=== PATIENT | male | born 1990 | race Caucasian/White ===

== ENCOUNTER 2025-09-08 02:49 | Emergency (ER) | payer OTHER ==
[~2025-09-08] VITALS: Ht 180.3 cm; Wt 72.6 kg
[2025-09-08 02:49] VITALS: BP 123/70
[2025-09-08] MEDS ORDERED: HYDROCODONE/APAP 5-325MG TABLET PO ONE (03:15)
[2025-09-08] MEDS ORDERED: HYDROCODONE/APAP 5-325MG TABLET ONE (03:20)
[2025-09-08] MEDS: SULFAMETH/TRIMETH 800/160 MG TABLET PO ONE (03:25)
[2025-09-08] MEDS: IBUPROFEN 600 MG TABLET PO ONE (03:25)
[2025-09-08] MEDS ORDERED: CEPH500C2 PO (03:27)
[2025-09-08] MEDS ORDERED: SULF1TAB48 PO (03:27)
[2025-09-08 03:33] VITALS: BP 126/68; O2SAT 99
== END 2025-09-08 03:59 | disposition home or self-care (01) ==
LOC: ER 02:56
DX: L02.412 Cutaneous abscess of left axilla (principal); L03.112 Cellulitis of left axilla; F17.210 Nicotine dependence, cigarettes, uncomplicated; Z79.899 Other long term (current) drug therapy; Z90.49 Acquired absence of other specified parts of digestive tract; Z60.2 Problems related to living alone
CPT/HCPCS: A4606; A4663

== ENCOUNTER 2025-09-24 03:05 | Emergency (ER) | payer OTHER ==
[~2025-09-24] VITALS: Ht 180.3 cm; Wt 77.1 kg
[~2025-09-24 03:05] MED LIST: CEPH500C2 PO; SULF1TAB48 PO
[2025-09-24 03:09] VITALS: BP 141/95
[2025-09-24] MEDS ORDERED: CEFTRIAXONE 500 MG VIAL ONE (03:32)
[2025-09-24] MEDS: CEFTRIAXONE 500 MG VIAL IM ONE (03:44)
[2025-09-24] MEDS ORDERED: DOXY-326 PO (04:28)
[2025-09-24 04:38] VITALS: BP 136/88; O2SAT 98
[2025-09-26 19:12] LABS: *CHLAMYDIA NAA Negative (Negative); *GC NAA Negative (Negative); *TRIC.VAG. NAA Negative (Negative)
== END 2025-09-24 04:32 | disposition home or self-care (01) ==
LOC: ER 03:05
DX: Z20.2 Contact with and (suspected) exposure to infections with a predominantly sexual mode of transmission (principal); F17.210 Nicotine dependence, cigarettes, uncomplicated; Z72.51 High risk heterosexual behavior; Z86.19 Personal history of other infectious and parasitic diseases; Z88.7 Allergy status to serum and vaccine; Z90.49 Acquired absence of other specified parts of digestive tract
CPT/HCPCS: 99283; 96372; 87491; J0696; A4606; A4663